=== PATIENT | male | born 1990 | race Caucasian/White ===

== ENCOUNTER 2018-10-31 18:41 | Inpatient (IN) | payer OTHER ==
[~2018-10-31] VITALS: Ht 172.7 cm; Wt 89.5 kg
--- NOTE | 2018-10-31 18:58 | NUR ---
PT BIBSELF FOR ABD PAIN X6HRS AGO; PT AAOX4, PT AMBULATORY, NAD NOTED, VSS, PENDING MD [place]
[2018-10-31] MEDS ORDERED: ONDANSETRON HCL/PF 4 MG/2 ML VIAL ONE (19:11)
[2018-10-31] MEDS ORDERED: KETOROLAC TROMETHAMINE 15 MG/ML VIAL ONE (19:11)
[2018-10-31 19:14] LABS: BASOPHILS % (AUTO) 0.3 % (0.0-2.0); EOSINOPHILS % (AUTO) 1.4 % (0.0-6.0); HEMATOCRIT 44 % (39-51); HEMOGLOBIN 15.1 g/dL (13.5-17.5); LYMPHOCYTES % (AUTO) 9.3 % (20.0-44.0); MEAN CORPUSCULAR HGB CONC 34 g/dl (31.0-36.0); MEAN CORPUSCULAR VOLUME 93 fL (80-96); MONOCYTES # (AUTO) 0.5 /CMM (0.1-1.30); MONOCYTES % (AUTO) 4.7 % (2.0-12.0); NEUTROPHILS # (AUTO) 9.5 /CMM (1.8-8.9); NEUTROPHILS % (AUTO) 84.3 % (43.0-81.0); PLATELET COUNT (AUTO) 217 /CMM (150-450); RED BLOOD CELL COUNT(AUTO) 4.71 MIL/uL (4.5-6.0); WHITE BLOOD COUNT (AUTO) 11.2 K/uL (4.3-11.0)
--- NOTE | 2018-10-31 19:20 | NUR ---
RECEIVED REPORT FROM YOHANNES ARREOLA FOR JAYDEN
--- NOTE | 2018-10-31 19:25 | NUR ---
RADIOLOGY AT BEDSIDE FOR XRAY
[2018-10-31 19:26] LABS: ALBUMIN 4.6 g/dL (3.4-5.0); BILIRUBIN,DIRECT 0.2 mg/dL (0.0-0.2); BILIRUBIN,TOTAL 0.9 mg/dL (0.2-1.0); CALCIUM, SERUM 9.5 mg/dL (8.5-10.1); CREATININE 1.1 mg/dL (0.6-1.3); TOTAL PROTEIN, SERUM 7.9 g/dL (6.4-8.2)
[2018-10-31] MEDS ORDERED: IV NS 0.9% 1,000 ML BAG IV ONE (19:30)
[2018-10-31] MEDS ORDERED: ONDANSETRON HCL/PF 4 MG/2 ML VIAL IVP ONE (19:30)
[2018-10-31] MEDS ORDERED: KETOROLAC TROMETHAMINE INJ 30 MG/ML VIAL IV ONE (19:30)
--- NOTE | 2018-10-31 20:00 | NUR ---
PT ABLE TO AMBULATE TO RESTROOM WITH STEADY GAIT. URINE COLLECTED AND SENT TO LAB
--- NOTE | 2018-10-31 20:20 | NUR ---
BROUGHT BY RADIOLOGY FOR CT
[2018-10-31 20:28] LABS: APPEARANCE,URINE Clear (CLEAR); BILIRUBIN,URINE SMALL (NEGATIVE); BLOOD, URINE Negative Ery/uL (NEGATIVE); COLOR,URINE Yellow (YELLOW); KETONES,URINE 40 (NEGATIVE); LEUKOCYTE ESTERASE ,URINE Negative (NEGATIVE); NITRITE, URINE Negative (NEGATIVE); PH,URINE 5.5 (5.0-8.0); PROTEIN,URINE 30 mg/dl (NEGATIVE); UGLUCOSE Negative (NEGATIVE); UROBILINOGEN,URINE 0.2 EU/dL (0.2)
--- NOTE | 2018-10-31 20:46 | NUR ---
PT RESTING COMFORTABLY IN BED. NO ACUTE DISTRESS NOTED AT THIS TIME. WILL CONTINUE TO MONITOR
[2018-10-31 21:11] LABS: BACTERIA,URINE Rare /HPF (None Seen); MUCUS,URINE Moderate /LPF (None Seen); RBC,URINE NONE SEEN /HPF (0-2); SQUAMOUS EPITHELIAL CELL,UR Rare /HPF (None Seen); URINE AMORPHOUS URATE Few /HPF (None Seen); WBC,URINE 0-2 /HPF (0-3)
[2018-10-31] MEDS ORDERED: PIPERACILLIN /TAZOBACTAM 3.375 G VIAL IV ONE (21:11)
--- NOTE | 2018-10-31 21:15 | NUR ---
CALLED [facility] FOR PT ADMISSION.
--- NOTE | 2018-10-31 21:24 | NUR ---
CALLED [facility] TO [facility] DR. THIBODEAUX
--- NOTE | 2018-10-31 21:29 | NUR ---
CALLED NURSING SUP FOR MED/SURG BED.
[2018-10-31] MEDS ORDERED: PIPERACILLIN /TAZOBACTAM 3.375 G in IV D5W 50 ML IV ONE (21:30)
--- NOTE | 2018-10-31 21:49 | NUR ---
NURSING SUP CALLED. PT GOING TO [address] BED B.
--- NOTE | 2018-10-31 21:53 | NUR ---
GAVE REPORT TO DRE ARREOLA FOR JAYDEN
--- NOTE | 2018-10-31 22:16 | NUR ---
MS RN NOTES RECEIVED PT FROM ER VIA EMILY WITH FAMILY AT BEDSIDE. PT A/O X4 AND ABLE TO MAKE NEEDS KNOWN. PT WITH RAC #20G PATENT AND INTACT. SKIN INTACT WITH REDNESS AROUND GROIN, PT REFUSES PICTURES TO BE TAKEN. RESPIRATIONS EVEN AND UNLABORED WITH NO S/S OF ACUTE DISTRESS OR SOB NOTED. PT DENIES PAIN AT THIS TIME. ORIENTED FAMILY AND PT TO UNIT AND ROOM. PT IS AMBULATORY. CALL LIGHT WITHIN REACH. WILL CONTINUE TO MONITOR.
[2018-10-31 22:20] VITALS: BP 119/61
--- NOTE | 2018-10-31 22:20 | NUR ---
PT TRANSFERRED TO [facility] BED 320-2 VIA WHEELCHAIR WITH EMT
[2018-10-31] MEDS ORDERED: ONDANSETRON HCL/PF 4 MG/2 ML VIAL IVP PRN (23:00)
[2018-10-31] MEDS ORDERED: ACETAMINOPHEN 325 MG TABLET PO PRN (23:00)
[2018-10-31] MEDS ORDERED: HYDROCODONE/APAP 5/325MG 1 EACH TABLET PO PRN (23:00)
[2018-10-31] MEDS ORDERED: MAGNESIUM HYDROXIDE 30 ML UDC PO PRN (23:00)
[2018-10-31] MEDS ORDERED: Z GUARD REMEDY 2 OZ OINT TP PRN (23:00)
[2018-10-31] MEDS ORDERED: KETOROLAC TROMETHAMINE INJ 30 MG/ML VIAL IV PRN (23:00)
[2018-10-31] MEDS ORDERED: MAG HYDROX/AL HYDROX/SIMETH 30 ML UDC PO PRN (23:00)
[2018-10-31] MEDS ORDERED: ZOLPIDEM TARTRATE 5 MG TABLET PO PRN (23:00)
[2018-10-31] MEDS: IV NS 0.9% 1,000 ML IV PRN (23:38)
[2018-11-01] MEDS ORDERED: PIPERACILLIN /TAZOBACTAM 3.375 G VIAL IV ONE (02:30)
--- NOTE | 2018-11-01 02:37 | NUR ---
MS RN NOTES ZOSYN MANUAL BARCODE USED BECAUSE PT IS NEW ADMIT AND MEDICATION WOULDN'T NOT SCAN. MEDICATION RECEIVED FROM CHARGE NURSE.
[2018-11-01] MEDS ORDERED: PIPERACILLIN /TAZOBACTAM 3.375 G in IV D5W 50 ML IV ONE (03:00)
[2018-11-01] MEDS ORDERED: PIPERACILLIN /TAZOBACTAM 3.375 G in IV D5W 50 ML IV SCH (06:00)
[2018-11-01 06:58] LABS: CALCIUM, SERUM 8.7 mg/dL (8.5-10.1); POTASSIUM 3.7 mmol/L (3.5-5.1)
[2018-11-01 06:59] LABS: BASOPHILS % (AUTO) 0.5 % (0.0-2.0); EOSINOPHILS % (AUTO) 4.3 % (0.0-6.0); HEMATOCRIT 42 % (39-51); HEMOGLOBIN 14.2 g/dL (13.5-17.5); LYMPHOCYTES # (AUTO) 2.1 /CMM (0.8-4.8); LYMPHOCYTES % (AUTO) 32.4 % (20.0-44.0); MEAN CORPUSCULAR HGB CONC 34 g/dl (31.0-36.0); MEAN CORPUSCULAR VOLUME 94 fL (80-96); MONOCYTES # (AUTO) 0.6 /CMM (0.1-1.30); MONOCYTES % (AUTO) 8.6 % (2.0-12.0); NEUTROPHILS # (AUTO) 3.6 /CMM (1.8-8.9); NEUTROPHILS % (AUTO) 54.2 % (43.0-81.0); PLATELET COUNT (AUTO) 191 /CMM (150-450); RED BLOOD CELL COUNT(AUTO) 4.48 MIL/uL (4.5-6.0); WHITE BLOOD COUNT (AUTO) 6.6 K/uL (4.3-11.0)
[2018-11-01] MEDS: PANTOPRAZOLE 40 MG TABLET.DR PO SCH (07:30)
--- NOTE | 2018-11-01 07:46 | NUR ---
MS RN NOTES PT IN BED AWAKE AND ABLE TO MAKE NEEDS KNOWN WITH FAMILY AT BEDSIDE. PT A/O X4. PT WITH RAC #20G PATENT AND INTACT RUNNING NS@75ML/HR. SKIN INTACT WITH REDNESS AROUND GROIN. RESPIRATIONS EVEN AND UNLABORED WITH NO S/S OF ACUTE DISTRESS OR SOB NOTED THROUGHOUT SHIFT. PT DENIES PAIN AT THIS TIME. CALL LIGHT WITHIN REACH. WILL ENDORSE TO ON COMING NURSE FOR JAYDEN.
[2018-11-01] MEDS: PIPERACILLIN /TAZOBACTAM 3.375 G in IV D5W 100 ML IV SCH ×2 (08:22→15:32)
[2018-11-01 08:38] VITALS: BP 99/60
--- NOTE | 2018-11-01 09:41 | NUR ---
rn ms opening notes Received patient on room air, no sob noted. Patient lying down in bed comfortably, patient denies pain at this time. IVF running at 75 ml/hr no obstruction and is flowing freely. A/O x 4 with family present, bed at the lowest setting, call light within reach.
[2018-11-01] MEDS: IV NS 0.9% 1,000 ML IV PRN (13:33)
[2018-11-01 17:04] VITALS: BP 96/53
--- NOTE | 2018-11-01 18:10 | NUR ---
RN MS NOTES Patient remains on room air,no sob noted. Patient seen lying down comfortably in bed, patient denies pain all shift. ABX and IVF running with no obstruction seen. Patient's needs tended to. Patient's bed at the lowest setting, call light within reach. Patient did not want his groin redness/rash to be taken a picture of, stated that he has his own cream for his rash.
--- NOTE | 2018-11-01 19:30 | NUR ---
MS/RN RECEIVE PATIENT AWAKE, ALERT ORIENTED, COMFORTABLE, NO C/O PAIN, NO DISTRESS NOTED, CALL LIGHT IN REACH. WILL MONITOR.
[2018-11-01 20:00] VITALS: BP 97/63
[2018-11-02] MEDS: PIPERACILLIN /TAZOBACTAM 3.375 G in IV D5W 100 ML IV SCH ×3 (00:05→15:38)
[2018-11-02] MEDS: IV NS 0.9% 1,000 ML IV PRN (04:54)
--- NOTE | 2018-11-02 06:31 | NUR ---
MS/RN PATIENT STILL SLEEPING AT THIS TIME, APPEAR COMFORTABLE, NO SIGNS OF DISTRESS NOTED, CALL LIGHT IN REACH. ALL NEEDS ATTENDED AT THIS TIME, WILL CONTINUE TO MONITOR.
[2018-11-02 08:00] VITALS: BP 106/62
--- NOTE | 2018-11-02 08:00 | NUR ---
MS RN OPENING NOTES Received Patient comfortable and watching TV in bed. A/O x 4. VS stable with no acute distress. Breathing even and unlabored on room air with no SOB nor respiratory distress. Denies pain. PIV on RAC 20g clean, dry, intact and flushes well. IVF NS running at 75ml/hr. Skin intact. All needs rendered at this time. Safety precautions in place. Bed locked and set in lowest position with side rails x 2 up. Call light within reach. Will continue to monitor.
[2018-11-02 08:08] LABS: BASOPHILS % (AUTO) 0.8 % (0.0-2.0); EOSINOPHILS % (AUTO) 5.9 % (0.0-6.0); HEMATOCRIT 42 % (39-51); HEMOGLOBIN 13.8 g/dL (13.5-17.5); LYMPHOCYTES # (AUTO) 1.5 /CMM (0.8-4.8); LYMPHOCYTES % (AUTO) 34.9 % (20.0-44.0); MEAN CORPUSCULAR HGB CONC 33 g/dl (31.0-36.0); MEAN CORPUSCULAR VOLUME 94 fL (80-96); MONOCYTES # (AUTO) 0.4 /CMM (0.1-1.30); MONOCYTES % (AUTO) 9.2 % (2.0-12.0); NEUTROPHILS # (AUTO) 2.1 /CMM (1.8-8.9); NEUTROPHILS % (AUTO) 49.2 % (43.0-81.0); PLATELET COUNT (AUTO) 182 /CMM (150-450); RED BLOOD CELL COUNT(AUTO) 4.39 MIL/uL (4.5-6.0); WHITE BLOOD COUNT (AUTO) 4.2 K/uL (4.3-11.0)
[2018-11-02 08:41] LABS: CALCIUM, SERUM 8.8 mg/dL (8.5-10.1); MAGNESIUM 2.1 mg/dL (1.8-2.4); PHOSPHORUS 3.6 mg/dL (2.5-4.9)
[2018-11-02] MEDS: PANTOPRAZOLE 40 MG TABLET.DR PO SCH (09:34)
[2018-11-02 10:00] VITALS: BP 106/62
[2018-11-02 16:00] VITALS: BP 118/68
[2018-11-02] MEDS ORDERED: ONDA4TAB5 SL (17:21)
[2018-11-02] MEDS ORDERED: SIMV10TA6 PO (17:21)
[2018-11-02] MEDS ORDERED: METR500T PO (17:21)
[2018-11-02] MEDS ORDERED: CIPR-262 PO (17:21)
--- NOTE | 2018-11-02 19:07 | NUR ---
MS RN CLOSING NOTES Patient comfortable and watching TV in bed. A/O x 4. VS stable with no acute distress. Breathing even and unlabored on room air with no SOB nor respiratory distress. Denies pain. PIV on RAC 20g clean, dry, intact and flushes well. IVF NS running at 75ml/hr. Skin intact. All needs rendered at this time. Safety precautions in place. Bed locked and set in lowest position with side rails x 2 up. Call light within reach. Will endorse plan of discharge care to oncoming shift.
--- NOTE | 2018-11-02 20:05 | NUR ---
RN NOTES: PATIENT WAS LYIGN COMFORTABLY IN BD WITH IVF ONGOING, A/OX4. AWAITING FOR HIS RELATIVE TO COME TO PICK HIM UP FOR DISCHARGE TODAY. -THOMAS CAME TO ELECTROPLATER HELPER THE PATIENT, IV CANNULA REMOVE, PRESSURE DRESSING APPLIED, NO BLEEDING NOTED.RN WANT TO EDUCATE HIM ABOUT DISCHARGE INSTRUCTION HE SAID HE ALREADY RECEIVED IT WITH THE MORNING NURSE. -PATIENT LEFT AT 2009, AMBULATORY.
== END 2018-11-02 20:10 | disposition home or self-care (01) | DRG 395 ==
LOC: ER 18:47 → MED 22:08
PROVIDERS: ADMIT Nurse Practitioner Acute Care; ATTEND Nurse Practitioner Acute Care
DX: K37 Unspecified appendicitis (principal); E66.9 Obesity, unspecified; Z72.0 Tobacco use; Z68.30 Body mass index [BMI] 30.0-30.9, adult; E78.5 Hyperlipidemia, unspecified; K38.1 Appendicular concretions
CPT/HCPCS: 36415; 74022-TC; 80048-TC; 80061-TC; 80076-TC; 81000-TC; 83690-TC; 83735-TC; 84100-TC; 85025-TC; 85610-TC; 85730-TC; 87081-TC; G0378; J1885; J2405; J2543; J7030; J7060